=== PATIENT | female | born 1960 | race Caucasian/White ===

== ENCOUNTER → 2017-12-08 | Outpatient (CLI) | payer OTHER ==
[~2017-12-08] MED LIST: AMLODIPINE BESYL5 MG PO; CALCIUM 500 +1 EAC5 PO; CENTRUM SILVER1 EAC6 PO; COZAAR 25 MG TA25 M1 PO; LOSARTAN-HCTZ1 EACH PO; MAGNESIUM100 MG PO; PRAVACHOL20 MG PO; VITAMIN B COMP1 EACH PO
== END ==
LOC: M.RAD 10:11
DX: Z12.31 Encounter for screening mammogram for malignant neoplasm of breast (principal); I10 Essential (primary) hypertension; E78.00 Pure hypercholesterolemia, unspecified

== ENCOUNTER → 2019-09-23 | Outpatient (CLI) | payer OTHER | LOC: M.RAD 16:00 | PROVIDERS: ATTEND Nurse Practitioner Family | DX: Z12.31 Encounter for screening mammogram for malignant neoplasm of breast (principal); M85.88 Other specified disorders of bone density and structure, other site ==

== ENCOUNTER → 2020-10-02 | Outpatient (CLI) | payer OTHER | LOC: M.RAD 11:27 | PROVIDERS: ATTEND Nurse Practitioner Family | DX: Z12.31 Encounter for screening mammogram for malignant neoplasm of breast (principal); N64.89 Other specified disorders of breast ==